=== PATIENT | female | born 1990 | race Caucasian/White ===

== ENCOUNTER 2017-12-28 12:23 | Inpatient (IN) | payer MEDICAID ==
[~2017-12-28] VITALS: Ht 167.6 cm; Wt 83.0 kg
[2017-12-28 13:04] LABS: BASOPHIL % 0.7 % (0-2); PLATELET COUNT 192 x10^3mcL (130-400)
[2017-12-28 13:06] LABS: RED CELL DISTRIBUTION WIDTH 17.8 % (11.5-14.5)
[2017-12-28 13:14] LABS: ALBUMIN 4.1 g/dL (3.4-5.0); BILIRUBIN TOTAL 1.61 mg/dL (0.20-1.00); CALCIUM 9.2 mg/dL (8.5-10.1); CARBON DIOXIDE 30.3 mmol/L (21-32); CREATININE SERUM 1.3 mg/dL (0.6-1.0); MAGNESIUM 1.5 mg/dL (1.8-2.4); TOTAL PROTEIN, SERUM 7.9 g/dL (6.4-8.2)
[2017-12-28 13:19] LABS: POTASSIUM SERUM 2.1 mmol/L (3.5-5.1)
[2017-12-28 14:32] LABS: microscopic required? YES; urine erythrocyte 3+ (NEGATIVE)
[2017-12-28 14:53] LABS: AMPHETAMINE QUAL UR NONE DETECTED (NEG <=1000)
[2017-12-28 15:00] LABS: CHOLESTEROL/HDL RATIO 1.7
[2017-12-28 15:16] LABS: T3 TOTAL 1.05 ng/mL
[2017-12-28 15:24] VITALS: BP 120/68
[2017-12-28 15:36] LABS: FREE T4 1.33 ng/dL (0.76-1.46); FREE THYROXINE INDEX 4.1 ug/dL (1.4-4.5); T4(THYROXINE) 10.6 ug/dL (4.7-13.3)
[2017-12-28 20:40] VITALS: BP 120/75
[2017-12-28 21:34] LABS: CALCIUM 7.7 mg/dL (8.5-10.1); CARBON DIOXIDE 31.3 mmol/L (21-32); CHLORIDE SERUM 96 mmol/L (98-107); GFR1 > 60 mL/min; GLUCOSE SERUM 90 mg/dL (74-106); POTASSIUM SERUM 3.1 mmol/L (3.5-5.1); SODIUM SERUM 135 mmol/L (136-145)
[2017-12-29 05:41] VITALS: BP 105/73
[2017-12-29 07:21] LABS: ALBUMIN 2.8 g/dL (3.4-5.0); ALKALINE PHOSPHATASE 93 U/L (46-116); ALT/SGPT 47 U/L (14-59); AST/SGOT 72 U/L (15-37); BILIRUBIN TOTAL 1.3 mg/dL (0.20-1.00); CARBON DIOXIDE 30.2 mmol/L (21-32); CHLORIDE SERUM 100 mmol/L (98-107); GFR1 > 60 mL/min; GLUCOSE SERUM 89 mg/dL (74-106); MAGNESIUM 3.3 mg/dL (1.8-2.4); PHOSPHOROUS 2.4 mg/dL (2.5-4.9); SODIUM SERUM 137 mmol/L (136-145); TOTAL PROTEIN, SERUM 5.6 g/dL (6.4-8.2)
[2017-12-29 07:30] LABS: BASOPHIL % 0.9 % (0-2)
[2017-12-29 07:47] LABS: PLATELET COUNT 124 x10^3mcL (130-400); RED CELL DISTRIBUTION WIDTH 18.4 % (11.5-14.5)
[2017-12-29 09:35] VITALS: BP 104/63
[2017-12-29 13:28] VITALS: BP 107/71
[2017-12-29 13:50] LABS: CALCIUM 7.8 mg/dL (8.5-10.1); CARBON DIOXIDE 30.8 mmol/L (21-32); CHLORIDE SERUM 102 mmol/L (98-107); GFR1 > 60 mL/min; GLUCOSE SERUM 93 mg/dL (74-106); POTASSIUM SERUM 3.8 mmol/L (3.5-5.1); SODIUM SERUM 137 mmol/L (136-145)
[2017-12-29] MEDS ORDERED: LEVAQUIN750 MG PO (14:16)
[2017-12-29] MEDS ORDERED: SERTRALINE50 M1 PO (14:16)
[2017-12-29] MEDS ORDERED: LAC PO (14:16)
[2017-12-29] MEDS ORDERED: LIB25 PO (14:18)
[2017-12-29 14:51] VITALS: BP 107/71
== END 2017-12-29 16:08 | disposition home or self-care (01) | DRG 280 ==
LOC: ED 12:23 → DU 14:04 → MU 12-29 10:35
PROVIDERS: Emergency Medicine; Family Medicine
DX: K70.9 Alcoholic liver disease, unspecified (principal); N17.0 Acute kidney failure with tubular necrosis; E87.1 Hypo-osmolality and hyponatremia; F41.9 Anxiety disorder, unspecified; E83.42 Hypomagnesemia; E87.6 Hypokalemia; K29.20 Alcoholic gastritis without bleeding; F10.20 Alcohol dependence, uncomplicated; Y90.9 Presence of alcohol in blood, level not specified; F32.9 Major depressive disorder, single episode, unspecified; N39.0 Urinary tract infection, site not specified
CPT/HCPCS: 83880; 84439; G0480; J0696; J2060; J2405; J2550; J3411; J3475; J3480; J3490; J7030; Q0092

== ENCOUNTER 2018-05-15 19:39 | Inpatient (IN) | payer MEDICAID ==
[~2018-05-15] VITALS: Ht 167.6 cm; Wt 80.7 kg
[~2018-05-15 19:39] MED LIST: LAC PO; LEVAQUIN750 MG PO; LIB25 PO; SERTRALINE50 M1 PO
[2018-05-15 20:31] LABS: BASOPHIL % 0.4 % (0-2); PLATELET COUNT 241 x10^3mcL (130-400); RED CELL DISTRIBUTION WIDTH 14.4 % (11.5-14.5)
[2018-05-15 20:44] LABS: ALBUMIN 4.5 g/dL (3.4-5.0); ALKALINE PHOSPHATASE 179 U/L (46-116); ALT/SGPT 124 U/L (14-59); AST/SGOT 221 U/L (15-37); BILIRUBIN TOTAL 3.44 mg/dL (0.20-1.00); CALCIUM 9.9 mg/dL (8.5-10.1); CARBON DIOXIDE 33.3 mmol/L (21-32); CHLORIDE SERUM 74 mmol/L (98-107); CREATININE SERUM 1.6 mg/dL (0.6-1.0); GFR1 41 mL/min; GLUCOSE SERUM 148 mg/dL (74-106); LIPASE 318 IU/L (73-393); MAGNESIUM 1.7 mg/dL (1.8-2.4); PHOSPHOROUS 2.6 mg/dL (2.5-4.9); SODIUM SERUM 126 mmol/L (136-145)
[2018-05-15 20:52] LABS: AMPHETAMINE QUAL UR NONE DETECTED (See below)
[2018-05-15 20:52] LABS: POTASSIUM SERUM 2.1 mmol/L (3.5-5.1); TOTAL PROTEIN, SERUM 8.8 g/dL (6.4-8.2)
[2018-05-15 21:27] LABS: UA SPECIFIC GRAVITY >=1.030 (1.005-1.035); microscopic required? YES; urine erythrocyte 2+ (NEGATIVE)
[2018-05-15 21:38] LABS: T3 TOTAL 0.75 ng/mL
[2018-05-15 21:39] LABS: FREE T4 1.44 ng/dL (0.76-1.46); FREE THYROXINE INDEX 3.5 ug/dL (1.4-4.5); T4(THYROXINE) 9.6 ug/dL (4.7-13.3)
[2018-05-15 22:10] VITALS: BP 125/82
[2018-05-15 22:22] VITALS: Ht 167.6 cm; Wt 80.7 kg
[2018-05-15 23:50] VITALS: BP 124/81
[2018-05-16 05:31] VITALS: BP 129/75
[2018-05-16 06:04] LABS: BASOPHIL % 0.5 % (0-2); PLATELET COUNT 168 x10^3mcL (130-400)
[2018-05-16 06:23] LABS: CALCIUM 8.4 mg/dL (8.5-10.1); CARBON DIOXIDE 36.4 mmol/L (21-32); CHLORIDE SERUM 87 mmol/L (98-107); CREATININE SERUM 1.1 mg/dL (0.6-1.0); GFR1 > 60 mL/min; GLUCOSE SERUM 88 mg/dL (74-106); PHOSPHOROUS 3.1 mg/dL (2.5-4.9); SODIUM SERUM 131 mmol/L (136-145)
[2018-05-16 06:29] LABS: POTASSIUM SERUM 2.6 mmol/L (3.5-5.1)
[2018-05-16 08:43] VITALS: BP 109/70
[2018-05-16 12:55] VITALS: BP 125/86
[2018-05-16 17:12] VITALS: BP 107/79
[2018-05-16 17:18] VITALS: BP 127/74
[2018-05-16 17:21] LABS: CALCIUM 8.7 mg/dL (8.5-10.1); CARBON DIOXIDE 37.3 mmol/L (21-32); CREATININE SERUM 1.3 mg/dL (0.6-1.0); POTASSIUM SERUM 3.8 mmol/L (3.5-5.1)
[2018-05-16 20:46] VITALS: BP 107/71
[2018-05-17 05:34] VITALS: BP 105/71
[2018-05-17 06:56] LABS: BASOPHIL % 0.7 % (0-2); PLATELET COUNT 149 x10^3mcL (130-400)
[2018-05-17 06:57] LABS: RED CELL DISTRIBUTION WIDTH 14.6 % (11.5-14.5)
[2018-05-17 07:04] LABS: CALCIUM 8.3 mg/dL (8.5-10.1); CARBON DIOXIDE 31.4 mmol/L (21-32); CHLORIDE SERUM 96 mmol/L (98-107); GFR1 > 60 mL/min; GLUCOSE SERUM 121 mg/dL (74-106); MAGNESIUM 2.2 mg/dL (1.8-2.4); PHOSPHOROUS 1.3 mg/dL (2.5-4.9); POTASSIUM SERUM 3.5 mmol/L (3.5-5.1); SODIUM SERUM 134 mmol/L (136-145)
[2018-05-17 09:58] VITALS: BP 112/75
[2018-05-17 12:57] VITALS: BP 110/77
[2018-05-17 17:23] VITALS: BP 104/64
[2018-05-17 20:50] VITALS: BP 105/68
[2018-05-18 05:16] VITALS: BP 102/65
[2018-05-18 06:45] LABS: BASOPHIL % 0.9 % (0-2); PLATELET COUNT 136 x10^3mcL (130-400)
[2018-05-18 06:52] LABS: CALCIUM 8.2 mg/dL (8.5-10.1); CARBON DIOXIDE 29.1 mmol/L (21-32); CHLORIDE SERUM 100 mmol/L (98-107); CREATININE SERUM 0.9 mg/dL (0.6-1.0); GFR1 > 60 mL/min; GLUCOSE SERUM 114 mg/dL (74-106); POTASSIUM SERUM 3.2 mmol/L (3.5-5.1); SODIUM SERUM 136 mmol/L (136-145)
[2018-05-18 07:05] LABS: RED CELL DISTRIBUTION WIDTH 14.9 % (11.5-14.5)
[2018-05-18 09:26] VITALS: BP 102/65
[2018-05-18] MEDS ORDERED: THI100 PO (09:41)
[2018-05-18] MEDS ORDERED: FOL1 PO (09:41)
[2018-05-18] MEDS ORDERED: KEFLEX500 M1 PO (09:41)
[2018-05-18 10:37] VITALS: BP 102/65
== END 2018-05-18 12:11 | disposition home or self-care (01) | DRG 52 ==
LOC: ED 19:39 → DU 21:07
PROVIDERS: Emergency Medicine; Internal Medicine
DX: G92 Toxic encephalopathy (principal); N17.0 Acute kidney failure with tubular necrosis; T51.0X4A Toxic effect of ethanol, undetermined, initial encounter; F10.20 Alcohol dependence, uncomplicated; Y90.0 Blood alcohol level of less than 20 mg/100 ml; N39.0 Urinary tract infection, site not specified; R74.0 Nonspecific elevation of levels of transaminase and lactic acid dehydrogenase [LDH]; E87.6 Hypokalemia; E87.1 Hypo-osmolality and hyponatremia; E86.0 Dehydration; E83.42 Hypomagnesemia; E83.39 Other disorders of phosphorus metabolism; F41.9 Anxiety disorder, unspecified; D53.9 Nutritional anemia, unspecified; E78.5 Hyperlipidemia, unspecified; Z68.28 Body mass index [BMI] 28.0-28.9, adult
CPT/HCPCS: 84439; G0480; J0696; J2060; J2550; J3475; J3480; J3490; J7030; Q0092

== ENCOUNTER 2018-12-05 05:31 | Inpatient (IN) | payer OTHER ==
[~2018-12-05] VITALS: Ht 170.2 cm; Wt 81.6 kg
[~2018-12-05 05:31] MED LIST changes: +FOL1 PO; +KEFLEX500 M1 PO; +THI100 PO
[2018-12-05 05:39] VITALS: Ht 170.2 cm; Wt 81.6 kg
--- NOTE | 2018-12-05 06:22 | NUR ---
PT CAME TO THE ED TODAY STATING THAT SHE IS HAVING ETOH WITHDRAWLS. PT STATES THAT SHE HAS BEEN DRINKING A BOTTLE OF VODKA EVERY DAY FOR A FEW MONTHS. PT STATES THAT SHE STOPPED DRINKING YESTERDAY BECAUSE, "I DONT WANT TO DO IT ANYMORE". PT IS ALERT AND ABLE TO MAKE NEEDS KNOWN, PT WAS ABLE TO STAND AND TRANSFER FROM W/C TO BED. PT STATES THAT SHE CAN NOT MOVE HER ARMS. SHE ASSISTED MINIMALLY WITH CHANGING INTO GOWN.
[2018-12-05 06:58] LABS: BASOPHIL % 0.5 % (0-2)
[2018-12-05 07:00] LABS: PLATELET COUNT 124 x10^3mcL (130-400); RED CELL DISTRIBUTION WIDTH 15.2 % (11.5-14.5)
--- NOTE | 2018-12-05 07:10 | NUR ---
PATIENT LYING ON GURNEY, NO S/S OF DISTRESS NOTED. BREATHING EVEN AND UNLABORED. EMT ASSISTED TO THE BATHROOM FOR URINE SAMPLE. WILL CONTINUE TO MONITOR UPON RETURN.
[2018-12-05 07:18] LABS: ALBUMIN 3.7 g/dL (3.4-5.0); BILIRUBIN TOTAL 3.14 mg/dL (0.20-1.00); CALCIUM 8.8 mg/dL (8.5-10.1); CARBON DIOXIDE 34.8 mmol/L (21-32); TOTAL PROTEIN, SERUM 7.8 g/dL (6.4-8.2)
--- NOTE | 2018-12-05 07:24 | NUR ---
PATIENT CURRENTLY UNABLE TO PROVIDE URINE. STS THAT SHE IS NOT .
[2018-12-05 07:45] LABS: POTASSIUM SERUM 2.7 mmol/L (3.5-5.1)
[2018-12-05 08:07] LABS: MAGNESIUM 1.6 mg/dL (1.8-2.4)
--- NOTE | 2018-12-05 08:41 | NUR ---
AM UPDATE- PT TO CT AT THIS TIME. PRIMARY RN AWARE.
--- NOTE | 2018-12-05 08:42 | NUR ---
PATIENT TAKEN TO CT BY
--- NOTE | 2018-12-05 09:12 | NUR ---
PROVIDED REPORT TO RAIN DURAN FOR FURTHER CARE OF PATIENT.
[2018-12-05 09:45] VITALS: BP 127/83
--- NOTE | 2018-12-05 09:59 | NUR ---
RECIEVED PT FROM ED. PT IS AWAKE, ALERT, AND ORIENTED X4. DROWSY AT TIMES. RESPONDS WELL TO QUESTION AND ANSWER. CLEAR DIALLO LUNG FIELD, SYMMETRICAL CHEST EXPANSION AND UNLABORED. ACTIVE BOWEL SOUNDS NOTED. SKIN INTACT. SIDE RAILS UP, CALL LIGHT WITHIN REACH, WILL CONTINUE TO MONITOR
--- NOTE | 2018-12-05 14:00 | NUR ---
PT ON BED, AWAKE, ALERT, AND ORIENTED. HAS NO COMPLAINT OF PAIN, SOB, OR DIZZINESS. RESPONDS WELL TO QUESTION AND ANSWER. CLEAR DIALLO LUNG FIELD, SYMMETRICAL CHEST EXPANSION AND UNLABORED. ACTIVE BOWEL SOUNDS NOTED. NON DISTENDED ABDOMEN
[2018-12-05 14:14] LABS: CREATININE SERUM 4.2 mg/dL (0.6-1.0)
[2018-12-05 17:10] VITALS: BP 122/63
--- NOTE | 2018-12-05 18:00 | NUR ---
PT EATING DINNER AT BEDSIDE
--- NOTE | 2018-12-05 18:39 | NUR ---
PT ON BED, RESTING WILL CONTINUE TO MONITOR
--- NOTE | 2018-12-05 19:30 | NUR ---
PT IS A/O X4. ON TELE #19, SR WITH A SLIGHT DEPRESSED T WAVE. SZ PRECAUTION PLACED. DENIES ANY CHEST PAIN OR PRESSURE. PULSES ARE PRESENT. NO EDEMA NOTED. LUNGS CLEAR IN ALL FEILDS. ON RA, DENIES ANY SOB. EQUAL CHEST RISE AND FALL. DENIES ANY RESP DISTRESS. BOWEL SOUNDS PRESENT x4. DENIES ANY ABD PAIN OR DISCOMFORT. DENIES ANY N/V. SLIGHT TREMORS NOTED ON BUE. SKIN WARM AND INTACT. DENIES ANY PAIN AT THIS TIME. IV ON LH INTACT AND PATENT. NO SIGN OF IRRITATION OR INFLAMATION NOTED. BED IS AT LOWEST SETTING. CALL LIGHT WITHIN REACH. SIDE RAILS UP x2 FOR PT SAFETY. WILL CONTINUE TO MONITOR.
[2018-12-05 21:44] VITALS: BP 115/83
--- NOTE | 2018-12-06 00:28 | NUR ---
PT C/O OF AGITATION. GAVE PRN ATIVAN PER EMAR. NO OTHER COMPLAINTS. IV INTACT AND PATENT. SZ PRECAUTION IN PLACE. WILL CONTINUE TO MONTIOR.
[2018-12-06 05:23] VITALS: BP 125/93
--- NOTE | 2018-12-06 06:10 | NUR ---
PT IS RESTING IN BED WITH BOTH EYES CLOSED. BREATHING EVEN AND UNALBORED. NO SIGN OF DISTRESS NOTED. NO ACUTE EVENT OCCURED AT NIGHT. SZ PRECAUTION IN PLACE. IV INTACT. STILL NEED URINE SAMPLE. BED IS AT LOWEST SETTING. CALL LIGHT WITHIN REACH. WILL ENDORSE TO AM NURSE.
[2018-12-06 06:39] LABS: CALCIUM 8.5 mg/dL (8.5-10.1); CARBON DIOXIDE 37.3 mmol/L (21-32); CREATININE SERUM 2.4 mg/dL (0.6-1.0); MAGNESIUM 2.6 mg/dL (1.8-2.4); POTASSIUM SERUM 3.2 mmol/L (3.5-5.1)
--- NOTE | 2018-12-06 07:30 | NUR ---
PT ENDORSE TO ME THIS MORNING. LAYING IN BED RESTING. AA/O X4 / SZ PREC INPLACE. BREATHING EVEN AND UNLABORED ON RA. NO ACUTE RESP DISTRESS OR SOB NOTED. TELE 19 SR WITH SLIGHT DEC T WAVE NOTED. DENIES ANY CP OR PRESURE. BOWEL SOUNDS ACTIVE IN ALL FOUR QUADS. VOIDS FREELY. GEN WEAKNESS NOTED KNOWS TO CALL FOR ASSIST. IV TO THE RFA INTACT AND PATENT INFUSING AT 70ML/HR. NO REDNESS OR SWELLING NOTED. CALL LIGHT IN REACH. BED IN LOW POSITON. WILL CONTINUE PLAN OF CARE.
[2018-12-06 07:32] LABS: BILIRUBIN DIRECT 2.01 mg/dL (0.0-0.2); BILIRUBIN TOTAL 3.3 mg/dL (0.20-1.00)
[2018-12-06 07:39] LABS: ALBUMIN 2.9 g/dL (3.4-5.0)
[2018-12-06 09:30] VITALS: BP 117/84
--- NOTE | 2018-12-06 09:43 | NUR ---
STATED BOLUS. CURRENT VS: 117/84 92 MAP,HR 94,RESP 17, 97.9 TEMP. MEDICATED PER EMAR FOR FEELING ANXIOUS. WILL CONTINUE TO MONITOR.
[2018-12-06 10:50] VITALS: BP 115/82
--- NOTE | 2018-12-06 10:50 | NUR ---
BOLUS COMPLETE CURRENT VS: 115/82 HR 89, RESP 16,97 RA. WILL CONTINUE PLAN OF CARE.
[2018-12-06 11:05] LABS: BASOPHIL % 0.4 % (0-2); PLATELET COUNT 78 x10^3mcL (130-400); RED CELL DISTRIBUTION WIDTH 15.1 % (11.5-14.5)
--- NOTE | 2018-12-06 13:35 | NUR ---
PT IS C/O OF FEELING ANXIOUS, MEDICATED PER EMAR. WILL CONTINUE TO MONITOR.
[2018-12-06 13:45] VITALS: BP 114/82
[2018-12-06 14:19] LABS: UA SPECIFIC GRAVITY <=1.005 (1.005-1.035); microscopic required? YES; urine erythrocyte 1+ (NEGATIVE)
[2018-12-06 14:34] LABS: AMPHETAMINE QUAL UR NONE DETECTED (See below)
--- NOTE | 2018-12-06 18:27 | NUR ---
NO ACUTE CHANGES AT THIS TIME. NO ACUTE RESP DISTRESS OR SOB NOTED. CURRENTLY SITTING UP IN BED/ TOLERATED 100 % OF DINNER. DENIES FEELING ANXIOUS AT THIS TIME/ MEDICATED PER EMAR. IV TO THE RFA INTACT AND PATENT INFUSING AT 150ML/HR, NO REDNESS OR SWELLING NOTED. FAMILY AT BEDSIDE. WILL ENORSE TO INCOMING RN.
[2018-12-06 18:49] VITALS: BP 121/88
--- NOTE | 2018-12-06 19:30 | NUR ---
AOX4. TELE #19, SR. LUNGS CLEAR ON RA. PULSES PALPABLE. NO EDEMA. BOWEL SOUNDS ACTIVE. VOIDS FREELY. AMBULATORY. MILD HAND TREMORS NOTED. SKIN INTACT. DENIES PAIN. IV TO RFA, PATENT AND INFUSING. SEIZURE PRECAUTIONS IN PLACE. BED IN LOWEST POSITION, 2 SIDE RAILS UP, CALL LIGHT IN REACH. INSTRUCTED TO CALL FOR ASSISTANCE.
[2018-12-06 21:10] VITALS: BP 119/86
--- NOTE | 2018-12-07 00:26 | NUR ---
RESTING IN BED WITH EYES CLOSED. BREATHING EVEN AND UNLABORED ON RA. NO ACUTE DISTRESS NOTED. WILL CONTINUE TO MONITOR.
--- NOTE | 2018-12-07 01:55 | NUR ---
PT STATES SHE IS FEELING "SICK" AND "SHORT OF BREATH" ADMINISTERED ATIVAN IVP PER EMAR AT APPROX 0100. CURRENTLY CALM AND RESTING IN BED WITH EYES CLOSED. BREATHING EVEN AND UNLABORED. WILL CONTINUE TO MONITOR.
[2018-12-07 06:02] VITALS: BP 112/78
[2018-12-07 06:40] LABS: CARBON DIOXIDE 30.5 mmol/L (21-32); CREATININE SERUM 1.6 mg/dL (0.6-1.0); POTASSIUM SERUM 3.5 mmol/L (3.5-5.1)
[2018-12-07 07:19] LABS: BASOPHIL % 0.6 % (0-2); RED CELL DISTRIBUTION WIDTH 14.2 % (11.5-14.5)
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
[2018-12-07 07:34] LABS: PLATELET COUNT 84 x10^3mcL (130-400)
--- NOTE | 2018-12-07 08:37 | NUR ---
PT C/O OF ABD PAIN 5/10, MEDICATED PER EMAR.
[2018-12-07 09:01] VITALS: BP 127/91
--- NOTE | 2018-12-07 10:31 | NUR ---
NOW MEDSURG / REMOVED TELE AND RETURNED.
--- NOTE | 2018-12-07 14:20 | NUR ---
PER DR. MCCORD ORDERS PT IS ABLE TO SHOWER, SHOWER TAKEN/ TOLERATED WELL.
--- NOTE | 2018-12-07 15:40 | NUR ---
PT SITTING UP IN BED RESTING. DENIES ANY TREMORS AT THIS TIME/ FAMILY AT BEDSIDE. ASSISTED PT WITH PERSONAL HYGIENE SUPPLIES. WILL CONTTINUE TO MONITOR.
[2018-12-07 17:57] VITALS: BP 114/83
--- NOTE | 2018-12-07 18:34 | NUR ---
NO ACUTE CHANGES AT THIS TIME. NO ACUTE RESP DISTRESS OR SOB NOTED. DENIES ANY TREMORS AT THE MOMENT/CURRENTLY ON SCHD LIBRIUM. IV TO THE RFA INTACT AND PATENT/ NO REDNESS OR SWELLING NOTED. WILL ENDORSE TO INCOMING RN.
--- NOTE | 2018-12-07 19:50 | NUR ---
AWAKE AND ALERT, ORIENTED TO NAME, PLACE, TIME AND SITUATION. SPEECH CLEAR AND APPROPRIATE. BREATHING EVEN AND UNLABORED ON ROOM AIR. IVF OF NS AT 150ML/HR. CALM AND COOPERATIVE W/ CARE. MOTHER IN ROOM
[2018-12-07 20:56] VITALS: BP 122/91
--- NOTE | 2018-12-08 00:54 | NUR ---
PT CALLED, STATED FEELING ANXIOUS, ALSO HAVING ABD AND BACK PAIN. PAGED DR. COOL
--- NOTE | 2018-12-08 00:56 | NUR ---
DR. COOL CALLED BACK, INFORMED OF PT'S SYMPTOMS.
--- NOTE | 2018-12-08 01:02 | NUR ---
NEW ORDER RECEIVED, WAITING FOR PHARMACY TO VERIFY
--- NOTE | 2018-12-08 01:06 | NUR ---
PHARMACIST CALLED, ASKED IF PT HAD TEST. NO TEST NOTED, BUT PT STATED SHE IS MENSTRUATING RIGHT NOW.
--- NOTE | 2018-12-08 01:44 | NUR ---
EYES CLOSED, BREATHING EVEN AND UNLABORED ON ROOM AIR. RR 16/MIN. LYING ON HER LEFT SIDE. HOB ELEVATED 30 DEG. CALL LIGHT WITHIN EASY REACH. SIDE RAILS REMAIN PADDED.
[2018-12-08 04:46] VITALS: BP 123/81
--- NOTE | 2018-12-08 06:19 | NUR ---
EYES CLOSED, EASILY AWAKENED. CALM AND COOPERATIVE WITH CARE. BREATHING EVEN AND UNLABORED ON ROOM AOR. HOB ELEVATED 30 DEG. CALL LIGHT WITHIN EASY REACH.
--- NOTE | 2018-12-08 06:59 | NUR ---
AWAKE AND ALERT, BREATHING EVEN AND UNLABORED. IN NO ACUTE DISTRESS. ENDORSED TO NURSE [place]
[2018-12-08 07:17] LABS: CALCIUM 7.8 mg/dL (8.5-10.1); CARBON DIOXIDE 25.8 mmol/L (21-32); CREATININE SERUM 1.2 mg/dL (0.6-1.0); POTASSIUM SERUM 3.5 mmol/L (3.5-5.1)
--- NOTE | 2018-12-08 07:35 | NUR ---
AAO X4.C/O BACK PAIN AT 9/10 PAIN SCALE WILL MEDICATE NEEDED.LUNGS CLEAR.PT NONE-TELE.IV INFILTRATED.REINSERTED 20 G ON R HAND.CALL LIGHT WITHIN REACH.INSTRUCTED TO CALL FOR ANY PAIN/DISCOMFORT.WILL CONTINUE TO MONITOR PT.
[2018-12-08 08:09] LABS: BASOPHIL % 0.5 % (0-2)
[2018-12-08 08:13] LABS: PLATELET COUNT 101 x10^3mcL (130-400); RED CELL DISTRIBUTION WIDTH 14.8 % (11.5-14.5)
--- NOTE | 2018-12-08 11:39 | NUR ---
ALEXYS MILLER FOR C/O N/V.
--- NOTE | 2018-12-08 12:33 | NUR ---
GAVE PT TORADOL ORDERED PRN FOR C/O ABD'L PAIN AND BACK PAIN.WILL CONTINUE TO MONITOR PT.
--- NOTE | 2018-12-08 12:52 | NUR ---
WENT TO RECHECK PAIN LEVEL AFTER 30 MINUTES GIVING THE TORADOL. PER PT.CLAIMS TO FEEL A LOT BETTER.ALSO N/V RELEIVED AFTER THE ZOFRAN.PT MORE RELAXED.
[2018-12-08 14:09] VITALS: BP 130/97
[2018-12-08 15:59] VITALS: BP 122/90
--- NOTE | 2018-12-08 18:27 | NUR ---
NO SIGNIFICANT CHANGE NOTED.WILL ENDORSE TO NEXT SHIFT.
--- NOTE | 2018-12-08 19:35 | NUR ---
RECEIVED REPORT FROM [place] RODRIGEZ. WILL CONTINUE TREATMENT AND CARE.
[2018-12-08 21:25] VITALS: BP 133/104
--- NOTE | 2018-12-08 23:03 | NUR ---
PT AAO X 4. NO S/SX OF PAIN OR DISCOMFORT AT THIS TIME. NO SOB OR RESPIRATORY DISTRESS NOTED. BREATHING EVEN AND UNLABORED. LUNG SOUNDS CLEAR TO AUSCULTATION. PT HAS IV FLUIDS OF 70CC/HR, NO INFILTRATION OR PHLEBITIS NOTED TO IV SITE. PT IS AMBULATORY. SKIN DRY AND INTACT. PULSES PALPABLE. BS ACTIVE X 4. NO N/V NOTED. BED IN LOW POSITION. CALL LIGHT WITHIN REACH. WILL CONTINUE TO MONITOR.
--- NOTE | 2018-12-08 23:19 | NUR ---
PT C/O 03/21 LOWER BACK PAIN. GIVEN TORADOL 15MG IVP. RR 18. WILL REASSESS PT FOR RELIEF OF PAIN.
--- NOTE | 2018-12-08 23:45 | NUR ---
PT STATES RELIEF OF BACK PAIN WITH PAIN MEDICATION, 0/10.
--- NOTE | 2018-12-09 01:56 | NUR ---
RT MARILUZ AT BEDSIDE ASSESSING PT AND PRIVIDING INCENTIVE SPIROMETER. TEACHING PROVIDED ON HOW TO USE DEVICE.
[2018-12-09 06:04] VITALS: BP 108/81
--- NOTE | 2018-12-09 06:43 | NUR ---
NO ACUTE CHANGES IN PT CONDITION DURING SHIFT. PT SLEPT COMFORTABLY THROUGHOUT NIGHT. TORADOL GIVEN X1 FOR LOWER BACK PAIN WITH RELIEF. BREATHING EVEN AND UNLABORED. IV FLUIDS CONTINUES TO RUN NS AT 70CC/HR TO R HAND 20G WITH NO S/SX OF INFILTRATION OR PHLEBITIS NOTED. PT ABLE TO ABULATE TO RESTROOM WITH STEADY GAIT. NO BM. ALL NEEDS MET AND ANTICIPATED. BED IN LOW POSITION. CALL LIGHT WITHIN REACH. WILL ENDORSE TO ONCOMING RN.
[2018-12-09 07:11] LABS: CALCIUM 7.9 mg/dL (8.5-10.1); CARBON DIOXIDE 25.2 mmol/L (21-32); CHLORIDE SERUM 103 mmol/L (98-107); CREATININE SERUM 1.1 mg/dL (0.6-1.0); GFR1 > 60 mL/min; GLUCOSE SERUM 110 mg/dL (74-106); POTASSIUM SERUM 3.7 mmol/L (3.5-5.1); SODIUM SERUM 136 mmol/L (136-145)
[2018-12-09 07:25] LABS: PLATELET COUNT 169 x10^3mcL (130-400)
--- NOTE | 2018-12-09 07:32 | NUR ---
GAVE REPORT TO LATESHA RODRIGEZ. ALL QUESTIONS AND CONCERNS ADDRESSED.
[2018-12-09 07:33] LABS: RED CELL DISTRIBUTION WIDTH 15.8 % (11.5-14.5)
[2018-12-09] MEDS ORDERED: LEXAPRO10 MG PO (08:58)
[2018-12-09] MEDS ORDERED: FOL1 PO (09:13)
[2018-12-09] MEDS ORDERED: THI100 PO (09:14)
[2018-12-09 09:32] VITALS: BP 109/81
[2018-12-09 11:01] VITALS: BP 109/81
[2018-12-09 13:58] LABS: ATYPICAL LYMPH 5 %; BAND NEUTROPHIL 1 % (0-10); BASOPHIL 0 % (0-2); MONOCYTE 10 % (0-7); SEGMENTED NEUTROPHILS 61 % (37-75)
[2018-12-09 13:59] LABS: PLATELET MORPHOLOGY PLATELETS DECREASED; rbc morphology (normal/abnorm) ABNORMAL (NORMAL)
== END 2018-12-09 12:15 | disposition home or self-care (01) | DRG 469 ==
LOC: ED 05:31 → DU 07:09 → MU 12-07 10:16
PROVIDERS: Specialist; ADMIT Internal Medicine
DX: N17.0 Acute kidney failure with tubular necrosis (principal); S09.90XA Unspecified injury of head, initial encounter; E83.42 Hypomagnesemia; F10.239 Alcohol dependence with withdrawal, unspecified; E86.0 Dehydration; E87.1 Hypo-osmolality and hyponatremia; T51.0X4A Toxic effect of ethanol, undetermined, initial encounter; R74.0 Nonspecific elevation of levels of transaminase and lactic acid dehydrogenase [LDH]; E87.6 Hypokalemia; Y90.0 Blood alcohol level of less than 20 mg/100 ml; Z68.28 Body mass index [BMI] 28.0-28.9, adult; W18.39XA Other fall on same level, initial encounter; Y93.89 Activity, other specified; Y92.010 Kitchen of single-family (private) house as the place of occurrence of the external cause; Y90.9 Presence of alcohol in blood, level not specified; F41.9 Anxiety disorder, unspecified; F32.9 Major depressive disorder, single episode, unspecified; R31.29 Other microscopic hematuria
CPT/HCPCS: C9113; G0480; J1885; J2060; J2405; J3411; J3475; J3480; J3490; J7030; Q0092

== ENCOUNTER 2018-12-11 21:40 | Emergency (ER) | payer OTHER ==
[~2018-12-11] VITALS: Ht 170.2 cm; Wt 87.5 kg
[~2018-12-11 21:40] MED LIST changes: +LEXAPRO10 MG PO
[2018-12-11 21:50] VITALS: Ht 170.2 cm; Wt 87.5 kg
[2018-12-12 00:57] LABS: BASOPHIL % 0.9 % (0-2); PLATELET COUNT 372 x10^3mcL (130-400)
[2018-12-12 00:58] LABS: RED CELL DISTRIBUTION WIDTH 15.2 % (11.5-14.5)
[2018-12-12 01:05] LABS: ALKALINE PHOSPHATASE 135 U/L (46-116); ALT/SGPT 62 U/L (14-59); AMYLASE 48 U/L (25-115); AST/SGOT 66 U/L (15-37); BILIRUBIN TOTAL 1.28 mg/dL (0.20-1.00); CALCIUM 7.8 mg/dL (8.5-10.1); CARBON DIOXIDE 25.7 mmol/L (21-32); CHLORIDE SERUM 102 mmol/L (98-107); CREATININE SERUM 0.9 mg/dL (0.6-1.0); GFR1 > 60 mL/min; GLUCOSE SERUM 109 mg/dL (74-106); LIPASE 111 IU/L (73-393); SODIUM SERUM 138 mmol/L (136-145); TOTAL PROTEIN, SERUM 6.4 g/dL (6.4-8.2)
[2018-12-12 01:08] LABS: ALBUMIN 2.9 g/dL (3.4-5.0)
[2018-12-12 01:09] LABS: POTASSIUM SERUM 2.8 mmol/L (3.5-5.1)
[2018-12-12 02:17] VITALS: BP 129/92
== END 2018-12-12 02:17 | disposition home or self-care (01) ==
LOC: ED 21:40
PROVIDERS: Emergency Medicine
DX: F10.239 Alcohol dependence with withdrawal, unspecified (principal)
CPT/HCPCS: 36415; J1885; Q0092; Q0162